=== PATIENT | female | born 1980 ===

== ENCOUNTER 2022-08-06 08:15 | Day surgery (SDC) | payer OTHER ==
[~2022-08-06] VITALS: Ht 149.9 cm; Wt 81.7 kg
[~2022-08-06 08:15] MED LIST: ATOR20 PO; GUAI600T33 PO; PROBIOTIC1 EA13 PO
--- NOTE | 2022-08-06 12:35 | NUR ---
POST OP ARRIVAL ARRIVED & TRANSFERED TO HOSPITAL BED. DROWSY BUT ABLE TO TAKE SIPS OF WATER. ABD SOFT w/ LAP SITES x 4. WOUND GLUE OVER. VERY SCANT RED DRNG. LUNGS CLEAR BUT SHALLOW BREATHS. 1L NC. DEEP BREATHES ON COMMAND.
--- NOTE | 2022-08-06 13:46 | NUR ---
C/O SLIGHT NAUSEA. ZOFRAN GIVEN.
--- NOTE | 2022-08-06 14:00 | NUR ---
NAUSEA RESOLVED. EATING CRACKERS & DRINKING WATER.
[2022-08-06] MEDS ORDERED: IBUP800 PO (14:26)
[2022-08-06] MEDS ORDERED: OXYC5 PO (14:27)
--- NOTE | 2022-08-06 15:25 | NUR ---
DISCHARGE EATING, DRINKING, & VOIDING. UP SLOWLY BUT STABLE GAIT. PAIN WELL MANAGED. VSS. PT HAS MEDS AT HOME. ESCORTED OUT VIA WC.
== END 2022-08-06 15:20 | disposition home or self-care (01) ==
LOC: ORSCMMR 08:15 → ORD 09:45 → BC 12:35 → ORSCMMR 15:20
PROVIDERS: Obstetrics & Gynecology
PROC: 0UT74ZZ Resection of Bilateral Fallopian Tubes, Percutaneous Endoscopic Approach (ICD-10-PCS; principal; 2022-08-06 09:45)
PROC: 0UT14ZZ Resection of Left Ovary, Percutaneous Endoscopic Approach (ICD-10-PCS; principal; 2022-08-06 09:45)
PROC: 0UT94ZZ Resection of Uterus, Percutaneous Endoscopic Approach (ICD-10-PCS; principal; 2022-08-06 09:45)
DX: D25.9 Leiomyoma of uterus, unspecified (principal); R10.2 Pelvic and perineal pain; N94.10 Unspecified dyspareunia; N80.03 Adenomyosis of the uterus; N83.8 Other noninflammatory disorders of ovary, fallopian tube and broad ligament; E78.5 Hyperlipidemia, unspecified; E66.9 Obesity, unspecified; Z68.36 Body mass index [BMI] 36.0-36.9, adult; Z79.899 Other long term (current) drug therapy
CPT/HCPCS: 58571; S2900; 88307; A9270; J0690; J1100; J1885; J2250; J2405; J2704; J3010; J7120